=== PATIENT | male | born 2005 | race Caucasian/White ===

== ENCOUNTER 2024-01-11 12:43 | Emergency (ER) | payer MEDICAID ==
[~2024-01-11] VITALS: Ht 170.2 cm; Wt 69.2 kg
[2024-01-11 13:06] VITALS: BP 137/83; PULSE 69; RESP 18; TEMP 98.6; O2SAT 100
[2024-01-11 14:57] VITALS: PULSE 67; RESP 19; O2SAT 100
== END 2024-01-11 14:57 | disposition home or self-care (01) ==
LOC: MED 12:43
DX: R06.02 Shortness of breath (principal); R09.89 Other specified symptoms and signs involving the circulatory and respiratory systems; R03.0 Elevated blood-pressure reading, without diagnosis of hypertension
CPT/HCPCS: 71045; 93005; 99283